=== PATIENT | male | born 1980 | race African-American/Black ===

== ENCOUNTER 2022-04-18 06:25 | Emergency (ER) | payer BC ==
[2022-04-18] MEDS ORDERED: Acetaminophen 500 MG TAB ONE (07:18)
[2022-04-18 08:19] LABS: SARS-CoV-2 NAA Rapid Test Not Detected (NotDetected)
[2022-04-18] MEDS ORDERED: Ibuprofen 200 MG TAB ONE (08:20)
== END 2022-04-18 08:49 | disposition home or self-care (01) ==
LOC: CSHERS 06:25
DX: B34.9 Viral infection, unspecified (principal); Z20.822 Contact with and (suspected) exposure to COVID-19
CPT/HCPCS: 99283